=== PATIENT | female | born 1960 | race Caucasian/White ===

== ENCOUNTER 2023-05-13 12:12 | Day surgery (SDC) | payer MEDICARE, BC, OTHER ==
[~2023-05-13] VITALS: Ht 157.5 cm; Wt 122.0 kg
[~2023-05-13 12:12] MED LIST: AIMO70IN; AMIT25TA19 PO; ASPI81TA26 PO; AZAT50TA37 PO; B-12100010 PO; BIOT1CAP2 PO; DICY-61 PO; GING250C PO; HYDR200T46 PO; LIDOCAINE 3.5 % 1ML OPHTH TOPICAL GEL OU ONE; MECL-86 PO; MELO15TA28 PO; NITR0.4S14 SL; OMEP40CA5 PO; PROP40TA62 PO; RA T500C2 PO; ROSU5TAB5 PO; VENL150C43 PO; XIID5DRO
[2023-05-13] MEDS ORDERED: MIDAZOLAM INJ 2MG/2ML VIAL As Ordered ONE (12:29)
[2023-05-13] MEDS ORDERED: fentaNYL 100 MCG/2 ML INJECTION As Ordered ONE (12:29)
[2023-05-13] MEDS ORDERED: LIDOCAINE 2% W/EPINEPHRINE 20ML VIAL **PRES FREE As Ordered ONE (13:19)
[2023-05-13] MEDS ORDERED: POVIDONE-IODINE 5% OPHTH PREP SOL 30ML As Ordered ONE (13:31)
[2023-05-13] MEDS ORDERED: TOBRADEX OPHTH OINT 3.5 GM As Ordered ONE (14:26)
[2023-05-13 14:48] VITALS: BP 159/82; TEMP 97.4; O2SAT 99
== END 2023-05-13 15:30 | disposition home or self-care (01) ==
LOC: M SDC 12:12
PROVIDERS: ATTEND Ophthalmology
DX: H02.403 Unspecified ptosis of bilateral eyelids (principal); E78.5 Hyperlipidemia, unspecified; R07.89 Other chest pain; K57.92 Diverticulitis of intestine, part unspecified, without perforation or abscess without bleeding; K58.8 Other irritable bowel syndrome; K21.9 Gastro-esophageal reflux disease without esophagitis; M79.7 Fibromyalgia; M32.9 Systemic lupus erythematosus, unspecified; F41.9 Anxiety disorder, unspecified; Z79.82 Long term (current) use of aspirin; Z79.899 Other long term (current) drug therapy; Z88.8 Allergy status to other drugs, medicaments and biological substances
CPT/HCPCS: 15823; 88302; J2250; J3010